=== PATIENT | female | born 1965 | race Two or more races ===

== ENCOUNTER 2018-07-07 08:21 | Outpatient (CLI) | payer OTHER | END 2018-07-07 14:00 | disposition home or self-care (01) | LOC: EKG 08:21 | DX: Z01.818 Encounter for other preprocedural examination (principal) ==

== ENCOUNTER 2018-07-09 15:15 | Inpatient (IN) | payer OTHER ==
[~2018-07-09] VITALS: Ht 154.9 cm; Wt 81.6 kg
[2018-07-10] MEDS ORDERED: DIOVAN PO (08:44)
[2018-07-10] MEDS ORDERED: METFORMIN HCL500 MG PO (08:44)
[2018-07-17] MEDS ORDERED: DOCUSATE SODIU100 MG PO (09:26)
[2018-07-17] MEDS ORDERED: ULTRAM50 MG PO (09:26)
== END 2018-07-17 13:04 | disposition home or self-care (01) | DRG 743 ==
LOC: O/R 07-16 05:45 → SURH 07-16 05:45 → SURG 07-16 16:02 → SURH 07-16 17:39
PROVIDERS: ADMIT Obstetrics & Gynecology
PROC: 0UT74ZZ Resection of Bilateral Fallopian Tubes, Percutaneous Endoscopic Approach (ICD-10-PCS; 2018-07-16)
PROC: 0USG4ZZ Reposition Vagina, Percutaneous Endoscopic Approach (ICD-10-PCS; 2018-07-16)
PROC: 0UT94ZZ Resection of Uterus, Percutaneous Endoscopic Approach (ICD-10-PCS; principal; 2018-07-16 11:30)
DX: N80.0 Endometriosis of uterus (principal); N72 Inflammatory disease of cervix uteri; I10 Essential (primary) hypertension